=== PATIENT | female | born 1950 | race Caucasian/White ===

== ENCOUNTER 2020-12-30 08:43 | Emergency (ER) | payer OTHER, MEDICARE ==
[~2020-12-30] VITALS: Ht 162.6 cm; Wt 81.6 kg
[2020-12-30 09:07] VITALS: BP_SYST 166
[2020-12-30] MEDS ORDERED: ONDANSETRON HCL 4 MG/2 ML VIAL IVP ONE (09:30)
[2020-12-30] MEDS ORDERED: KETOROLAC TROMETHAMINE 30 MG VIAL IVP ONE (09:30)
[2020-12-30 09:36] LABS: BASOPHILS # (AUTO) 0.1 K/uL (0.0-0.2); BASOPHILS % (AUTO) 0.5 % (0.0-2.0); EOSINOPHILS % (AUTO) 0.2 % (0.0-4.0); HEMATOCRIT 38.8 % (36-48); HEMOGLOBIN 13.4 g/dL (12.0-16.0); LYMPHOCYTES # (AUTO) 1.3 K/uL (1.0-5.5); LYMPHOCYTES % (AUTO) 11.4 % (20.5-51.5); MEAN CORPUSCULAR HEMOGLOBIN 31 pg (27-31); MEAN CORPUSCULAR HGB CONC 35 % (32-36); MEAN CORPUSCULAR VOLUME 88 fL (79.0-98.0); MONOCYTES # (AUTO) 0.8 K/uL (0.0-1.0); MONOCYTES % (AUTO) 6.8 % (1.7-9.3); NEUTROPHILS # (AUTO) 9.5 K/uL (1.8-7.7); NEUTROPHILS % (AUTO) 81.1 % (40.0-70.0); PLATELET COUNT (AUTO) 310 K/uL (130-430); RED CELL DISTRIBUTION WIDTH 13.2 % (9.0-15.0); WHITE BLOOD COUNT (AUTO) 11.7 K/uL (4.8-10.8)
[2020-12-30 09:54] LABS: ANION GAP 13 (5-15); CALCIUM 9.6 mg/dL (8.4-11.0); CHLORIDE 107 mmol/L (98-107); CREATININE 0.89 mg/dL (0.55-1.30); GLUCOSE 145 mg/dL (70-99); SODIUM SERUM 144 mmol/L (136-145); UREA NITROGEN, BLOOD 16 mg/dL (8-21)
[2020-12-30 09:59] LABS: ALANINE AMINOTRANSFERASE 36 U/L (12-78); ALBUMIN 3.7 g/dL (3.4-4.8); ASPARTATE AMINOTRANSFERASE 21 U/L (10-37); LIPASE 98 U/L (73-393); TOTAL BILIRUBIN 1.5 mg/dL (0.0-1.0)
[2020-12-30] MEDS ORDERED: TRAM50TA PO (11:19)
[2020-12-30 11:43] VITALS: BP_SYST 166
== END 2020-12-30 11:44 | disposition home or self-care (01) ==
LOC: SED 08:43
DX: R10.30 Lower abdominal pain, unspecified (principal); R11.2 Nausea with vomiting, unspecified; Z79.899 Other long term (current) drug therapy
CPT/HCPCS: 36415; 74176; 76376; 80053; 81002; 83690; 85025; 96374; 96375; 99284; J1885; J2405